=== PATIENT | male | born 1935 | race Caucasian/White ===

== ENCOUNTER 2021-02-02 15:31 | Emergency (ER) | payer OTHER, MEDICAID, SELFPAY ==
[~2021-02-02] VITALS: Ht 170.2 cm; Wt 77.1 kg
[2021-02-02 15:31] VITALS: BP 76/34
[~2021-02-02 15:31] MED LIST: ATOR10TA PO; CEPH250C16 PO; ENAL-197 PO; GABA300C PO; METF500T PO; METR500T1 PO; MIRA50TE PO; OMEP20EC11 PO; PIMA34CA PO; RASA1TAB PO; [UNRECOGNIZED DRUG - CODE] PO
--- NOTE | 2021-02-02 15:33 | NUR ---
[facility] TO ER BED 3
--- NOTE | 2021-02-02 15:45 | NUR ---
85 Y/O MALE BIBA. C/O SYNCOPE WITH EXERTION DURING DIARRHEA S/P FAMILY GAVE LAXATIVE FOR CONSTIPATION. ABD IS SOFT/ROUND AND TENDER X 4 QUAD. HYPERACTIVE BS NOTED. PT NOTED WITH LOW B/P AND MADE ERMD AWARE. PLACED ON 02 VIA NC. RESP EVEN AND UNLABORED. PMHX: DM, HTN, PARKINSONS
--- NOTE | 2021-02-02 15:56 | NUR ---
TECH AT BEDSIDE TO COMPLETE EKG
[2021-02-02] MEDS ORDERED: NACL 0.9% 2,000 ML IV ONE (16:10)
--- NOTE | 2021-02-02 16:45 | NUR ---
Tech at bedside to draw blood.
--- NOTE | 2021-02-02 16:54 | NUR ---
Radiology at bedside to do xray
--- NOTE | 2021-02-02 16:55 | NUR ---
Flu and COVID specimens collected and walked to lab
--- NOTE | 2021-02-02 17:00 | NUR ---
Consent for CT with contrast obtained. Spoke to family for updates. PT resting well in bed. Pericare provied and all needs met at this time.
[2021-02-02 17:23] LABS: BASOPHILS # (AUTO) 0.1 K/uL (0.00-0.22); BASOPHILS % (AUTO) 0.4 % (0.0-2.0); EOSINOPHILS # (AUTO) 0.1 K/uL (0-0.4); EOSINOPHILS % (AUTO) 0.5 % (0.0-4.0); HEMATOCRIT 33.8 % (36-52); HEMOGLOBIN 11.1 g/dL (12.0-18.0); LYMPHOCYTES # (AUTO) 0.9 K/uL (2.0-11.5); LYMPHOCYTES % (AUTO) 6.8 % (20.5-51.1); MEAN CORPUSCULAR HEMOGLOBIN 30 pg (27-31); MEAN CORPUSCULAR HGB CONC 33 g/dL (33-37); MEAN CORPUSCULAR VOLUME 91.7 fL (80-94); MONOCYTES # (AUTO) 0.7 K/uL (0.8-1.0); MONOCYTES % (AUTO) 5.3 % (1.7-9.3); NEUTROPHILS # (AUTO) 11.6 K/uL (1.8-7.7); PLATELET COUNT (AUTO) 290 K/uL (140-450); RED BLOOD CELL COUNT(AUTO) 3.68 MIL/uL (4.20-6.10); RED CELL DISTRIBUTION WIDTH 14.1 % (11.6-13.7); WHITE BLOOD COUNT (AUTO) 13.3 K/uL (4.8-10.8)
--- NOTE | 2021-02-02 18:02 | NUR ---
Rectal tube inserted per MD pichardor, well tolerated
--- NOTE | 2021-02-02 18:11 | NUR ---
Encouraged pt to provide a urine sample, unable at this time. Will try again shortly
[2021-02-02 18:15] LABS: ALBUMIN 3.7 g/dL (3.4-5.0); ANION GAP 20.5 (8-16); ASPARTATE AMINOTRANSFERASE 17 U/L (15-37); CARBON DIOXIDE 20.6 mmol/L (21-32); CHLORIDE 105 mmol/L (98-107); CREATININE 2.2 mg/dL (0.6-1.3); GLUCOSE 142 mg/dL (74-106); POTASSIUM 4.1 mmol/L (3.5-5.1); SODIUM SERUM 142 mmol/L (136-145); TOTAL BILIRUBIN 0.6 mg/dL (0.0-1.0); UREA NITROGEN, BLOOD 29 mg/dL (7-18)
--- NOTE | 2021-02-02 18:17 | NUR ---
CALLED CT FOR PT TO BE TAKEN TO RADIOLOGY
--- NOTE | 2021-02-02 18:22 | NUR ---
BUN/ELECTRICAL ASSEMBLY SUPERVISOR SHOWN TO NORMA SAID, WITH NEW ORER WITH CT W/O CONTRAST AT THIS TIME. NEW ORER NOTE AND CARRIED OUT. CT MADE AWARE. PT WILL BE TAKEN.
--- NOTE | 2021-02-02 18:51 | NUR ---
PT TAKED TO ER BED [address] SCAN
[2021-02-02] MEDS ORDERED: metroNIDAZOLE 500 MG/NS PREMIX 100 ML IV ONE (19:25)
[2021-02-02] MEDS ORDERED: LACTATED RINGERS 1,000 ML IV ONE ×2 (19:25→19:55)
--- NOTE | 2021-02-02 19:30 | NUR ---
Pt report given to RACHEL GUERIN. Transfer of care at this time.
[2021-02-02] MEDS ORDERED: cefTRIAXone 1,000 MG VIAL ONE (19:36)
--- NOTE | 2021-02-02 20:50 | NUR ---
PT LINENS WERE CHANGED AND PT REPOSITIONED. BM ARE DIARRHEA. PT TOLERATED WELL.
--- NOTE | 2021-02-02 21:26 | NUR ---
DAUGHTER, SULTANA, AT BEDSIDE. ER MD DISCUSSING PT CONDITION W/ PT AND FAMILY. PT WANTS TO LEAVE AMA AFTER FLUIDS AND MEDICATION ARE GIVEN.
[2021-02-02] MEDS ORDERED: CEPH-588 PO (22:42)
[2021-02-02] MEDS ORDERED: METR-520 PO (22:42)
[2021-02-03 00:30] VITALS: BP 112/60
--- NOTE | 2021-02-03 00:30 | NUR ---
Patient discharged with v/s stable. Written and verbal after care instructions given and explained. Patient alert, oriented and verbalized understanding of instructions. PT WANTED TO LEAVE AGAINST MEDICAL ADVICE; VSS; A/OX4; PT TALKED TO RN, FAMILY AND ER MD AND PT STILL WANTS TO LEAVE. AMA SIGNED. Wheel Chair Assisted with to family's car. All questions addressed prior to discharge. ID band removed. Patient advised to follow up with PMD. Rx of CEPHALEXIN AND METRONIDAZOLE given. Patient educated on indication of medication including possible reaction and side effects. Opportunity to ask questions provided and answered. PT CLEANED AND CHANGED.
--- NOTE | 2021-02-11 10:19 | NUR ---
LATE ENTRY- IV LR DISCONTINUED AT 0030.
--- NOTE | 2021-02-11 10:20 | NUR ---
LATE ENTRY- SECOND IV LR BAG DISCONTINUED AT 0030.
== END 2021-02-03 00:30 | disposition left against medical advice (07) ==
LOC: MED 15:31
DX: K52.9 Noninfective gastroenteritis and colitis, unspecified (principal); Z20.822 Contact with and (suspected) exposure to COVID-19; R65.21 Severe sepsis with septic shock; D72.829 Elevated white blood cell count, unspecified; D64.9 Anemia, unspecified; N17.9 Acute kidney failure, unspecified; E87.2 Acidosis; E11.9 Type 2 diabetes mellitus without complications; F03.90 Unspecified dementia, unspecified severity, without behavioral disturbance, psychotic disturbance, mood disturbance, and anxiety; I10 Essential (primary) hypertension; G20 Parkinson's disease; K21.9 Gastro-esophageal reflux disease without esophagitis; Z79.84 Long term (current) use of oral hypoglycemic drugs; Z79.899 Other long term (current) drug therapy
CPT/HCPCS: 36415; 71045; 74176; 80053; 83605; 83735; 83880; 84484; 85025; 87040; 87426; 87804; 93005; 96361; 96365; 96367; 99285; J0696; J3490; J7030; J7120; Q0092